=== PATIENT | female | born 1940 | race Caucasian/White ===

== ENCOUNTER → 2018-12-30 16:34 | Outpatient (CLI) | payer OTHER, SELFPAY ==
--- NOTE | 2018-12-30 16:49 | RAD_ITS ---
STUDY: X-RAY - LUMBAR SPINE REASON FOR EXAM: Female, 78 years old. Low back pain. No recent injury. TECHNIQUE: 3 view(s) of the lumbar spine were obtained. COMPARISON: None FINDINGS: Normal lumbar lordosis. There is no substantial scoliosis. There is grade 1 anterolisthesis at the L4-5 and L5-S1 levels, on a degenerative basis. Normal vertebral bodies. There is mild multilevel spondylosis.. There is multi-level degenerative disc disease with multi-level disc space narrowing. There are degenerative changes of the facet joints at the L4-5 and L5-S1 levels. There is atherosclerotic calcification of the abdominal aorta without a demonstrated aneurysm. RAD/Lumbar Spine 2 or 3 Views IMPRESSION: Degenerative changes of the spine, as detailed above. Electronically Signed: Luis Vaughan MD at 7:55 EDT , Service support ,
== END ==
PROVIDERS: Family Provider Internal Medicine; PCP Internal Medicine; Referring Provider Anesthesiology Pain Medicine; Visit Provider Anesthesiology Pain Medicine
DX: M54.9 Dorsalgia, unspecified (principal)
CPT/HCPCS: 72100

== ENCOUNTER → 2019-01-12 15:39 | Outpatient (CLI) | payer MEDICARE, SELFPAY ==
--- NOTE | 2019-01-12 16:00 | MRI_ITS ---
STUDY: MRI LUMBAR SPINE WITHOUT CONTRAST REASON FOR EXAM: Female, 78 years old. Severe back pain and right leg burning TECHNIQUE: Standardized fat and water weighted pulse sequences were obtained in the sagittal and axial planes. COMPARISON: Lumbar spine exam on December 30, 2018 FINDINGS: T12-L1: Normal endplates. Normal disc height, desiccation and normal morphology. Normal bilateral facet joints. Normal central canal and bilateral lateral recesses. Normal bilateral intervertebral neural foramina. Normal lumbar lordosis. There is no substantial scoliosis. Normal conus medullaris that terminates at T12-L1 L1-2: Normal endplates. Normal disc height, desiccation and normal morphology. Normal bilateral facet joints. Normal central canal and bilateral lateral recesses. Normal bilateral intervertebral neural foramina. L2-3: Normal endplates. Normal disc height, desiccation and normal morphology. Normal bilateral facet joints. Normal central canal and bilateral lateral recesses. Normal bilateral intervertebral neural foramina. L3-4: Normal endplates. Normal disc height, desiccation and small bilateral foraminal disc protrusions. Normal bilateral facet joints. Normal central canal and bilateral lateral recesses. Minor bilateral neural foraminal encroachment. L4-5: Grade 1 spondylolisthesis. Normal endplates. Normal disc height, desiccation and minor bulging disc osteophyte complex.. Bilateral facet arthropathy and thickening of ligamenta flava.. Normal central canal. Mild bilateral recess and moderate neural foraminal stenosis exaggerated by shortened pedicles. L5-S1: Grade 1 spondylolisthesis Normal endplates. Normal disc height, desiccation and mild bulging disc osteophyte complex.. Bilateral facet arthropathy and thickening of ligamenta flava greater on the right. Normal central canal and bilateral lateral recesses. Moderate left neuroforaminal stenosis and severe narrowing on the right exaggerated by shortened pedicles Normal visualized sacral ala. Normal visualized paraspinous soft tissue structures. No significant change since recent lumbar spine radiographic study other than accounting for differences in imaging techniques MRI/Spine Lumbar (Routine) IMPRESSION: No evidence for acute fracture or subluxation.. Mild spinal stenosis at L3-4 and more severe at L4-5 and L5-S1 greater on the right due to disc disease and bony hypertrophy exaggerated by shortened pedicles due to spondylolisthesis deformity Electronically Signed: Silvestre Marie MD at 18:51 EDT , Service support ,
== END ==
PROVIDERS: Family Provider Internal Medicine; PCP Internal Medicine; Referring Provider Anesthesiology Pain Medicine; Visit Provider Anesthesiology Pain Medicine
DX: M54.9 Dorsalgia, unspecified (principal); M79.606 Pain in leg, unspecified
CPT/HCPCS: 72148

== ENCOUNTER → 2019-05-19 16:19 | Outpatient (CLI) | payer MEDICARE, SELFPAY | PROVIDERS: Family Provider Internal Medicine; PCP Internal Medicine; Referring Provider Otolaryngology; Visit Provider Otolaryngology | DX: J02.9 Acute pharyngitis, unspecified (principal) | CPT/HCPCS: 87070 ==

== ENCOUNTER → 2021-04-04 14:40 | Outpatient (CLI) | payer MEDICARE, SELFPAY ==
[2021-04-04 16:37] LABS: Amphetamine Urine VISTA NEGATIVE (<1000 ng/mL); Barbiturate Urine VISTA NEGATIVE (< 200 ng/mL); Benzodiazepine Urine VISTA NEGATIVE (< 200 ng/mL); Cocaine Urine VISTA NEGATIVE (< 300 ng/mL); Ecstacy Urine VISTA NEGATIVE (< 500 ng/mL); Methadone Urine VISTA NEGATIVE (< 300 ng/mL); PCP Urine VISTA NEGATIVE (< 25 ng/mL); THC Urine VISTA NEGATIVE (< 50 ng/mL); Vista UDS pH Range 6
== END ==
PROVIDERS: PCP Internal Medicine; Referring Provider Anesthesiology Pain Medicine; Visit Provider Anesthesiology Pain Medicine
DX: F11.20 Opioid dependence, uncomplicated (principal)
CPT/HCPCS: 80307

== ENCOUNTER → 2021-08-09 12:54 | Outpatient (CLI) | payer MEDICARE, SELFPAY ==
--- NOTE | 2021-08-09 13:00 | RAD_ITS ---
STUDY: X-RAY - PELVIS AND RIGHT HIP REASON FOR EXAM: Right hip pain. TECHNIQUE: 2 views of the pelvis and hip. COMPARISON: None. FINDINGS: There is mild vascular calcification. Normal bilateral iliac wings, sacroiliac joints and visualized sacrum. Normal bilateral superior and inferior pubic rami. There is chondrocalcinosis in the pubic symphysis. Normal bilateral ischial tuberosities. Normal visualized femoral head. Normal acetabulum. There are marginal osteophytes and joint space narrowing of the medial right hip joint. RAD/HIP, UNI W/ Pelvis 2-3 Views IMPRESSION: Right hip arthrosis. Electronically Signed: Mukul Arias MD at 14:59 EST Tel , Service support ,
== END ==
PROVIDERS: PCP Internal Medicine; Referring Provider Anesthesiology Pain Medicine; Visit Provider Anesthesiology Pain Medicine
DX: M16.11 Unilateral primary osteoarthritis, right hip (principal)
CPT/HCPCS: 73502

== ENCOUNTER → 2022-06-17 | Outpatient (CLI) | payer MEDICARE, SELFPAY ==
--- NOTE | 2022-06-17 15:28 | MRI_ITS ---
STUDY: MRI CERVICAL SPINE WITHOUT CONTRAST REASON FOR EXAM: Female, 81 years old. Gait disorder; evaluate for myelopathy TECHNIQUE: Standardized fat and water weighted pulse sequences were obtained in the sagittal and axial planes. COMPARISON: X-ray 06/04/2012. FINDINGS: Normal foramen magnum and brainstem-cervical cord junction. Normal craniovertebral junction. Normal anterior atlantoaxial articulation. Normal odontoid process. Normal cervical lordosis. No demonstrated fracture. C2-3: Normal disc height and morphology. Normal central canal. Foramina are patent. C3-4: Normal disc height and morphology. Normal central canal. Foraminal stenosis is severe on the right due to facet hypertrophy. C4-5: Normal disc height and morphology. Normal central canal. Foraminal stenosis is moderate on the left and severe on the right due to facet hypertrophy. C5-6: Prior anterior cervical discectomy and fusion. Fusion is mature. Mild, noncompressive spondylotic bar. No canal stenosis. Mild foraminal encroachment due to facet hypertrophy. C6-7: Prior anterior cervical discectomy and fusion. Fusion is mature. Mild spondylotic bar. No canal stenosis. Mild foraminal encroachment due to facet hypertrophy. C7-T1: Normal disc height and morphology. Normal central canal. Foramina are patent. Normal cervical cord. Normal visualized soft tissue structures. Mucosal thickening in the maxillary sinuses. MRI/Spine Cervical (Routine) IMPRESSION: No disc protrusion or canal stenosis. Multilevel foraminal stenosis, greatest at C3-4 and C4-5. Prior ACDF C5-6 and C6-7. Electronically Signed: Tasha Rebolledo MD at 23:58 EDT Reading Location ID and State: [id number] / Tel , Service support ,
--- NOTE | 2022-06-17 15:28 | MRI_ITS ---
STUDY: MRI BRAIN WITH AND WITHOUT CONTRAST REASON FOR EXAM: Female, 81 years old. Gait disorder TECHNIQUE: Standardized multiplanar fat and water weighted pulse sequences were obtained. 15CC IV CLARISCAN was administered for the contrast portion of the examination. COMPARISON: None. FINDINGS: No intracranial mass, mass effect or midline shift. No enhancing lesion. No hemorrhage, territorial infarct or acute ischemia. There is mild cerebral atrophy with widening of the extra-axial spaces and ventricular dilatation. There are multiple white matter hyperintensities, distributed throughout the deep white matter tracts of the cerebral hemispheres, consistent with moderate chronic white matter ischemic changes. Normal bilateral basal ganglia. Normal thalami. There is no extra-axial fluid accumulation. Normal flow voids within the major intracranial circulation suggesting patency by spin echo criteria. There is no enhancing intra-axial or extra-axial abnormality. Pituitary gland is normal in height. Normal midbrain, jaswinder and medulla. Normal cerebellum. Normal basal cisterns. Normal bilateral temporal bones. Normal bilateral internal auditory canals. Fluid levels in the maxillary sinuses bilaterally consistent with acute sinusitis. Normal calvarium and skull base. Normal visualized soft tissue structures. MRI/Brain W/WO Contrast IMPRESSION: Acute maxillary sinusitis. Moderate chronic microvascular ischemic changes. Mild atrophy. Electronically Signed: Tasha Rebolledo MD at 23:31 EDT Reading Location ID and State: [id number] / Tel , Service support ,
[2022-06-17 16:15] LABS: CREATININE FINGERSTICK < 0.9 mg/dL (0.55-1.02); EGFR FINGERSTICK > 60.0000 mL/min (>60)
== END | disposition home or self-care (01) ==
PROVIDERS: PCP Internal Medicine; Referring Provider Psychiatry & Neurology Neurology; Visit Provider Psychiatry & Neurology Neurology
DX: R26.9 Unspecified abnormalities of gait and mobility (principal); M48.02 Spinal stenosis, cervical region; J01.00 Acute maxillary sinusitis, unspecified
CPT/HCPCS: 70553; 72141; A9575

== ENCOUNTER → 2022-07-31 | Outpatient (CLI) | payer MEDICARE, SELFPAY ==
[2022-07-31 15:20] LABS: Hematocrit 41.8 % (37-47); Hemoglobin 13.4 g/dL (12.0-15.0); Mean Corp Hgb Conc 32.1 g/dL (32-36); Mean Corpuscular Hgb 31.2 pg (27.0-32.0); Mean Corpuscular Volume 97.4 fL (81-99); Mean Platelet Vol. 9.4 fl (6.2-12.0); Platelet Count 289 K/mm3 (150-450); RBC Distribution Width CV 13.8 % (11.6-14.6); RBC Distribution Width SD 49.8 fl (35.1-43.9); Red Blood Count 4.29 M/mm3 (4.2-5.4); White Blood Count 8.1 K/mm3 (4.4-11.0)
[2022-07-31 15:52] LABS: ALB/GLOB Ratio 0.8 RATIO (0.9-2.4); AST(SGOT) 12 U/L (15-37); Alanine Aminotransfer ALT/SGPT 28 U/L (13-56); Albumin, Serum 3.4 g/dL (3.2-5.0); Alkaline Phosphatase 112 U/L (45-117); Anion Gap 4 (5-15); BUN 22 mg/dL (7-18); BUN/Creat Ratio 21.8 RATIO (10-20); Calcium,Total 8.7 mg/dL (8.5-10.1); Chloride 104 mmol/L (98-107); Creatinine, Serum 1.01 mg/dL (0.55-1.02); EST Glomerular Filtration Rate 56 mL/min (>60); Est Glom Filt Rate - Afr Amer 68 mL/min (>60); Glucose 222 mg/dL (74-106); Potassium 4.4 mmol/L (3.5-5.1); Protein, Total 7.4 g/dL (6.4-8.2); Sodium Level 137 mmol/L (136-145); T4 Free Direct 0.67 ng/dL (0.76-1.46); Thyroid Stim Hormone (TSH) 5.32 uIU/mL (0.358-3.74)
[2022-08-06 12:08] LABS: Albumin 3.7 g/dL (2.9-4.4); Alpha-1-Globulins 0.3 g/dL (0.0-0.4); Alpha-2-Globulins 0.9 g/dL (0.4-1.0); Free Lambda Light Chains 17.8 mg/L (5.7-26.3); Gamma Globulin 1.3 g/dL (0.4-1.8); Immunoglobulin A 545 mg/dL (64-422); Immunoglobulin G 1296 mg/dL (586-1602); Immunoglobulin M 135 mg/dL (26-217); PROEL- TOTAL PROTEIN 7.5 g/dL (6.0-8.5); Vitamin B1, Thiamine 184.5 nmol/L (66.5-200.0)
== END | disposition home or self-care (01) ==
LOC: MTLAB 11:58
PROVIDERS: PCP Internal Medicine; Referring Provider Psychiatry & Neurology Neurology; Visit Provider Psychiatry & Neurology Neurology
DX: I10 Essential (primary) hypertension (principal); G62.9 Polyneuropathy, unspecified
CPT/HCPCS: 36415; 80053; 82784; 83883; 84165; 84425; 84439; 84443; 85027; 86334; 86335

== ENCOUNTER → 2022-08-28 | Outpatient (CLI) | payer MEDICARE, SELFPAY ==
--- NOTE | 2022-08-28 15:21 | NEURO ---
NCS and/or EMG Patient Report Ordering Doctor: Jaiden Gill DATE OF SERVICE: 08/28/22 Yusra presents for electrodiagnostic testing of the lower limbs. She reports frequent falls over the past few months. Electrodiagnostic findings: Right peroneal motor nerve demonstrates normal distal latency, amplitude and conduction velocity. Normal left peroneal motor response. Normal tibial motor response bilaterally. Normal tibial and peroneal F waves. Normal superficial peroneal response bilaterally. Needle EMG, all muscles tested in the lower limbs showed no evidence of denervation with normal motor unit action potentials. No denervation noted in the lumbar paraspinals. Electrodiagnostic impression: There is a normal electrodiagnostic study of the lower extremities. There is no electrodiagnostic evidence for peripheral polyneuropathy or lumbosacral radiculopathy.
== END | disposition home or self-care (01) ==
LOC: PSN 11:46
PROVIDERS: PCP Internal Medicine; Referring Provider Psychiatry & Neurology Neurology; Visit Provider Psychiatry & Neurology Neurology
DX: M54.16 Radiculopathy, lumbar region (principal); G62.9 Polyneuropathy, unspecified; R26.89 Other abnormalities of gait and mobility
CPT/HCPCS: 95886; 95911

== ENCOUNTER → 2023-05-08 | Outpatient (CLI) | payer MEDICARE, SELFPAY ==
--- NOTE | 2023-05-08 13:20 | RAD_ITS ---
STUDY: X-RAY - LEFT KNEE REASON FOR EXAM: Female, 82 years old. Left knee pain. TECHNIQUE: 4 view(s) of the knee. COMPARISON: None. FINDINGS: Osteopenia. Moderate medial compartmental arthrosis. Mild lateral compartmental arthrosis. Lateral tilt and subluxation of the patella with moderate arthrosis of the patellofemoral compartment with osteophyte formation. Chondrocalcinosis with joint effusion. RAD/Knee 4 or More Views IMPRESSION: Osteopenia with tricompartmental arthrosis as described. Joint effusion with chondrocalcinosis. Electronically Signed: Daquan Caraballo MD at 14:41 EDT ,
== END | disposition home or self-care (01) ==
PROVIDERS: PCP Internal Medicine; Referring Provider Anesthesiology Pain Medicine; Visit Provider Anesthesiology Pain Medicine
DX: M25.562 Pain in left knee (principal)
CPT/HCPCS: 73564

== ENCOUNTER → 2023-09-08 | Outpatient (CLI) | payer MEDICARE, SELFPAY ==
--- NOTE | 2023-09-08 12:54 | RAD_ITS ---
INDICATION: PAIN EXAMINATION/TECHNIQUE: X-RAY - XR Spine Cervical 4 or 5 Views COMPARISON: No similar studies available for comparison. FINDINGS: VERTEBRAE: Preserved vertebral body height. No fracture. No spondylolisthesis. Straightening of the cervical spine. Degenerative changes of the apophyseal joints particularly at the levels of C2-C3, C3-C4 and C4-C5. Difficult to accurately evaluate the neural foramina. DISCS: Anterior fusion of C5-C7 with anterior plate and screws. NECK SOFT TISSUES: No prevertebral soft tissue widening. LUNG APICES: Clear. RAD/Cerv Spine 4 or 5 Views IMPRESSION: Fusion of the lower cervical spine. Degenerative changes . Electronically Signed: Christopher Quevedo MD at 13:49 EST ,
--- NOTE | 2023-09-08 12:54 | RAD_ITS ---
INDICATION: PAIN EXAMINATION/TECHNIQUE: X-RAY - XR Spine Lumbar Min 4 Views COMPARISON: Prior study dated: 12/30/2018. FINDINGS: VERTEBRAE: Preserved vertebral body height. No fracture. [Anterolisthesis of L4 over L5 and L5 over S1 essentially unchanged. Preservation of the normal lumbar lordosis. Degenerative changes of the facet joints of the lower lumbar spine. DISCS: Narrowing of L3-4 and L4-L5 disc spaces. INCLUDED ABDOMEN: Included bowel gas pattern is non-obstructive atherosclerotic calcifications of the abdominal aorta.. RAD/L/S Spine Min 4 Views IMPRESSION: Degenerative changes of the lumbar spine as described above. Electronically Signed: Christopher Quevedo MD at 14:03 EST ,
--- OUTSIDE RECORDS SUMMARY | 2023-09-08 13:18 | XMS RPT_ITS | CCD ---
Author Name Unknown Address [address] [place] [address] Organization [facility] Care Team Providers Care Seismograph Operator Helper Name Role Phone Mignon MATTHEW, Yaquelin Ramon Unavailable Cristina Osuna LPN Unavailable Unavailabl e FREYVOGEL, JEWEL Unavailable Unavailable FREYVOGEL, JEWEL Unavailable Unavailable FREYVOGEL, JEWEL Unavailable Unavailable ALEXANDRA BOYD, DR BUTLER Primary Care Physician FANTA BURNS Consulting Unavailable DR LUKE REEDER MD Primary Care Unavailable ALICIA SAWYER MD Attending Unavailable Luke Reeder MD Primary Care Provider Carol BOYD, Larry Unavailable [phone] VENKAT TRACEY MD Attending Unavailable VENKAT TRACEY MD Admitting Unavailable LUKE REEDER MD Consulting Unavailable VENKAT TRACEY MD Primary Care Unavailable PROVIDER, UNKNOWN Consulting Unavailable PROVIDER, UNKNOWN Consulting Unavailable PROVIDER, UNKNOWN Consulting Unavailable LUKE REEDER MD Admitting Unavailable LUKE REEDER MD Consulting Unavailable LUKE REEDER MD Attending Unavailable LUKE REEDER MD Primary Care Unavailable PROVIDER, UNKNOWN Consulting Unavailable PROVIDER, UNKNOWN Consulting Unavailable PROVIDER, UNKNOWN Consulting Unavailable LUKE REEDER MD Admitting Unavailable LUKE REEDER MD Consulting Unavailable LUKE REEDER MD Attending Unavailable LUKE REEDER MD Primary Care Unavailable PROVIDER, UNKNOWN Consulting Unavailable PROVIDER, UNKNOWN Consulting Unavailable PROVIDER, UNKNOWN Consulting Unavailable REHAN, DEMETRIA PAC Attending Unavailable REHAN, DEMETRIA PAC Admitting Unavailable REHAN, DEMETRIA PAC Primary Care Unavailable LUKE REEDER MD Consulting Unavailable PROVIDER, UNKNOWN Consulting Unavailable PROVIDER, UNKNOWN Consulting Unavailable PROVIDER, UNKNOWN Consulting Unavailable ALICIA SAWYER MD Attending Unavailable ALICIA SAWYER MD Admitting Unavailable LATLUKE ARAGON MD Consulting Unavailable ALICIA SAWYER MD Primary Care Unavailable PROVIDER, UNKNOWN Consulting Unavailable PROVIDER, UNKNOWN Consulting Unavailable PROVIDER, UNKNOWN Consulting Unavailable LUKE REEDER MD Admitting Unavailable LUKE REEDER MD Consulting Unavailable LUKE REEDER MD Attending Unavailable LUKE REEDER MD Primary Care Unavailable PROVIDER, UNKNOWN Consulting Unavailable PROVIDER, UNKNOWN Consulting Unavailable PROVIDER, UNKNOWN Consulting Unavailable LUKE REEDER MD Attending Unavailable LUKE REEDER MD Primary Care Unavailable LATLUKE ARAGON MD Consulting Unavailable LUKE REEDER MD Admitting Unavailable PROVIDER, UNKNOWN Consulting Unavailable PROVIDER, UNKNOWN Consulting Unavailable PROVIDER, UNKNOWN Consulting Unavailable LARRY CORRIGAN Attending Unavailable LARRY CORRIGAN Admitting Unavailable LUKE REEDER MD Consulting Unavailable LARRY CORRIGAN Primary Care Unavailable PROVIDER, UNKNOWN Consulting Unavailable PROVIDER, UNKNOWN Consulting Unavailable PROVIDER, UNKNOWN Consulting Unavailable LUKE REEDER MD Consulting Unavailable LUKE REEDER MD Attending Unavailable LUKE REEDER MD Admitting Unavailable LUKE REEDER MD Primary Care Unavailable PROVIDER, UNKNOWN Consulting Unavailable PROVIDER, UNKNOWN Consulting Unavailable PROVIDER, UNKNOWN Consulting Unavailable LUKE REEDER MD Attending Unavailable LUKE REEDER MD Primary Care Unavailable LATOULUKE Perry MD Consulting Unavailable LUKE REEDER MD Admitting Unavailable PROVIDER, UNKNOWN Consulting Unavailable PROVIDER, UNKNOWN Consulting Unavailable PROVIDER, UNKNOWN Consulting Unavailable LUKE REEDER MD Consulting Unavailable LUKE REEDER MD Attending Unavailable LUKE REEDER MD Primary Care Unavailable LUKE REEDER MD Admitting Unavailable PROVIDER, UNKNOWN Consulting Unavailable PROVIDER, UNKNOWN Consulting Unavailable PROVIDER, UNKNOWN Consulting Unavailable REHAN, DEMETRIA PAC Attending Unavailable REHAN, DEMETRIA PAC Admitting Unavailable LATLUKE ARAGON MD Consulting Unavailable REHAN, DEMETRIA PAC Primary Care Unavailable PROVIDER, UNKNOWN Consulting Unavailable PROVIDER, UNKNOWN Consulting Unavailable PROVIDER, UNKNOWN Consulting Unavailable LUKE REEDER MD Referring Unavailable NEETUOLIVIER HERRERA Attending Unavailable NEETUOLIVIER E Admitting Unavailable LATOULUKE Perry MD Consulting Unavailable NEETU OLIVIER E Primary Care Unavailable PROVIDER, UNKNOWN Consulting Unavailable PROVIDER, UNKNOWN Consulting Unavailable PROVIDER, UNKNOWN Consulting Unavailable LUKE REEDER MD Referring Unavailable OLIVIER DE ANDA Attending Unavailable NEETU, OLIVIER E Admitting Unavailable OLIVIER DE ANDA Primary Care Unavailable LATOUF, BUTROS Consulting Unavailable PROVIDER, UNKNOWN Consulting Unavailable PROVIDER, UNKNOWN Consulting Unavailable PROVIDER, UNKNOWN Consulting Unavailable LATOUF, BUTROS Primary Care Unavailable LATOUF, BUTROS Referring Unavailable LARRY CORRIGAN Attending Unavailable CAROL, LARRY Attending Unavailable CAROL, LARRY Referring Unavailable LATOUF, BUTROS Primary Care Unavailable CAROL, LARRY Referring Unavailable SHARON TSAI Attending Unavailable LATOUF, BUTROS Primary Care Unavailable LATOUF, BUTROS Primary Care Unavailable LATOUF, BUTROS Primary Care Unavailable CAROL, LARRY Referring Unavailable Allergies Allergy Classification Reported Allergen(s) Allergy Type Date of Onset Reaction(s) Facility (16 sources) aspirin; Translations: [aspirin] drug allergy 7 GI Upset [facility] Work Phone: (2 sources) Latex rubber gloves drug allergy 7 [facility] Work Phone: (2 sources) meperidine drug allergy 7 [facility] Work Phone: (2 sources) metFORMIN drug allergy 7 [facility] Work Phone: (14 sources) Codeine; Translations: [codeine] Drug Allergy 3 Other: See Comments [facility] [place] (15 sources) Latex; Translations: [LATEX] Allergy to substance 3 Rash [facility] [place] (14 sources) Meperidine; Translations: [meperidine] Drug Allergy 3 Vomiting [facility] [place] (14 sources) metFORMIN; Translations: [metformin] Drug Allergy 3 Diarrhea [facility] metroNIDAZOLE; Translations: [metronidazole] Drug Allergy unspecified [facility] [place] (1 source) Aspirin Drug Allergy [facility] (1 source) Codeine Drug Allergy [facility] (1 source) Meperidine Drug Allergy [facility] (1 source) Meperidine Drug Allergy [facility] (1 source) metFORMIN Drug Allergy [facility] Medications Current Medications Medication Drug Class(es) Dates Sig (Normalized) Sig (Original) amLODIPine 5 mg oral tablet (15 sources) Dihydropyridine Calcium Channel Obdulio Start: 04-12-2022 amLODIPine 5 mg oral tablet Dose : 5 mg = 1 tab(s), Oral, qDay, # 30 tab(s), 0 Refill(s) Start Date: 04/12/22 Status: Ordered Completed/Discontinued Medications Medication Drug Class(es) Dates Sig (Normalized) Sig (Original) acetaminophen 500 mg oral tablet (2 sources) ACETAMINOPHEN 50 0 MG TABS PO PRN ACETAMINOPHEN [id number] Yaquelin Crow NP MULTIPLE VITAMINS-MINERALS (2 sources) take 1 capsule by mouth once daily OCUVITE-LUTEIN CAPS 1 PO daily MULTIPLE VITAMINS-MINERALS [id number] Yaquelin Crow NP biotin 5 mg sublingual tablet (10 sources) biotin 5,000 mcg subl Dissolve under the tongue two times a day. 0 Active Problems Active Problems Problem Classification Problem Date Documented Date Episodic/Chronic Acute and unspecified renal failure (1 source) Unspecified kidney failure; Translations: [Unspecified kidney failure] Onset: 05-11-2023 Chronic Allergic reactions (3 sources) Allergy status to analgesic agent status; Translations: [Latex allergy status] Onset: 05-11-2023 Episodic Anxiety disorders (2 sources) Generalized anxiety disorder; Translations: [Anxiety disorder, unspecified] Onset: 05-16-2023 12-22-2020 Chronic Cancer of thyroid (1 source) Personal history of malignant neoplasm of thyroid; Translations: [Personal history of malignant neoplasm of thyroid] Onset: 05-16-2023 Episodic Cardiac dysrhythmias (1 source) Palpitations; Translations: [Palpitations] Onset: 05-16-2023 Episodic Chronic kidney disease (2 sources) Chronic kidney disease; Translations: [Chronic kidney disease, stage 3a] Onset: 08-05-2023 Congestive heart failure; nonhypertensive (4 sources) Diastolic heart failure; Translations: [Unspecified diastolic (congestive) heart failure] Onset: 10-02-2022 09-17-2022 Chronic Coronary atherosclerosis and other heart disease (1 source) Atherosclerotic heart disease of [place] coronary artery without angina pectoris; Translations: [Atherosclerotic heart disease of [place] coronary artery without angina pectoris] Onset: 05-11-2023 Chronic Diabetes mellitus with complications (4 sources) Type II diabetes mellitus uncontrolled; Translations: [Type 2 diabetes mellitus with other specified complication] Onset: 01-07-2017 01-07-2017 Chronic Diabetes mellitus without complication (1 source) Type 2 diabetes mellitus without complications; Translations: [Type 2 diabetes mellitus without complications] Onset: 05-11-2023 Chronic Diseases of white blood cells (6 sources) Leukemoid reaction; 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] Onset: 05-26-2023 06-30-2023 Chronic Disorders of lipid metabolism (3 sources) Hyperlipidemia; Translations: [Hyperlipidemia, unspecified] Onset: 08-05-2023 01-07-2017 Chronic Esophageal disorders (2 sources) Gastroesophageal reflux disease; Translations: [Gastro-esophageal reflux disease with esophagitis] 01-07-2017 Chronic Essential hypertension (7 sources) Hypertensive disorder; Translations: [Essential (primary) hypertension] Onset: 02-05-2023 01-07-2017 Chronic Genitourinary symptoms and ill-defined conditions (1 source) Proteinuria, unspecified; Translations: [Proteinuria, unspecified] Onset: 08-05-2023 Episodic Hypertension with complications and secondary hypertension (4 sources) Hypertensive chronic kidney disease with stage 1 through stage 4 chronic kidney disease, or unspecified chronic kidney disease; Translations: [Hypertensive heart disease with heart failure] Onset: 10-02-2022 Chronic Leukemias (1 source) Chronic myeloid leukemia; Translations: [Chronic myeloid leukemia, BCR/ABL-positive, not having achieved remission] 07-23-2023 Chronic Mood disorders (2 sources) Recurrent major depressive episodes, moderate ; Translations: [Major depressive disorder, recurrent, moderate] Onset: 05-16-2023 12-22-2020 Chronic Osteoarthritis (1 source) Unspecified osteoarthritis, unspecified site; Translations: [Unspecified osteoarthritis, unspecified site] Onset: 05-16-2023 Chronic Other circulatory disease (1 source) Personal history of transient ischemic attack (TIA), and cerebral infarction without residual deficits; Translations: [Personal history of transient ischemic attack (TIA), and cerebral infarction without residual deficits] Onset: 05-11-2023 Episodic Other diseases of kidney and ureters (1 source) Disorder of kidney and ureter, unspecified; Translations: [Disorder of kidney and ureter, unspecified] Onset: 05-26-2023 Episodic Other nutritional; endocrine; and metabolic disorders (2 sources) Overweight; Translations: [Overweight] Onset: 01-07-2017 01-07-2017 Chronic Other screening for suspected conditions (not mental disorders or infectious disease) (2 sources) Abnormal result of other cardiovascular function study; Translations: [Abnormal result of other cardiovascular function study] Onset: 02-25-2023 Episodic Personality disorders (1 source) Personality disorder 12-22-2020 Chronic Pneumonia (except that caused by tuberculosis or sexually transmitted disease) (1 source) Other pneumonia, unspecified organism; Translations: [Other pneumonia, unspecified organism] Onset: 05-11-2023 Episodic Residual codes; unclassified (1 source) Asymptomatic menopausal state; Translations: [Asymptomatic menopausal state] Onset: 05-16-2023 Episodic Residual codes; unclassified (1 source) Acquired absence of other specified parts of digestive tract; Translations: [Acquired absence of other specified parts of digestive tract] Onset: 05-11-2023 Episodic Residual codes; unclassified (1 source) Acquired absence of other genital organ(s); Translations: [Acquired absence of other genital organ(s)] Onset: 05-11-2023 Episodic Thyroid disorders (1 source) Nontoxic single thyroid nodule; Translations: [Nontoxic single thyroid nodule] Onset: 05-16-2023 Chronic Transient cerebral ischemia (2 sources) Transient cerebral ischemia; Translations: [Transient cerebral ischemic attack, unspecified] Onset: 10-02-2022 09-17-2022 Chronic Unclassified (1 source) No current problems or disability 01-07-2017 Unclassified (2 sources) Cough, unspecified; Translations: [Cough, unspecified] Onset: 05-11-2023 Unclassified (2 sources) Low back pain, unspecified; Translations: [Low back pain, unspecified] Onset: 04-13-2023 Past or Other Problems Problem Classification Problem Date Documented Da te Episodic/Chronic Fracture of upper limb (3 sources) Nondisplaced fracture of left radial styloid process, subsequent encounter for closed fracture with routine healing; Translations: [Nondisplaced fracture of left radial styloid process, subsequent encounter for closed fracture with routine healing] Onset: 10-01-2022 Episodic Hepatitis (2 sources) Type B viral hepatitis; Translations: [Hepatitis A without hepatic coma] 01-07-2017 Episodic Nonspecific chest pain (1 source) Chest pain, unspecified; Translations: [Chest pain, unspecified] Onset: 10-02-2022 Episodic Superficial injury; contusion (1 source) Contusion of left wrist, subsequent encounter; Translations: [Contusion of left wrist, subsequent encounter] Onset: 10-01-2022 Episodic Unclassified (1 source) Cough, unspecified; Translations: [Cough, unspecified] Onset: 05-11-2023 Unclassified (1 source) Low back pain, unspecified; Translations: [Low back pain, unspecified] Onset: 04-13-2023 Results Test Name Value Interpretation Reference Range Facil it Vital Signs Date Time Vital Sign Value Performing Clinician Facility 06-30-2023 16:52-0400 Body temperature 97.81 [degF] Milton Tsai INVERTEBRATE PALEONTOLOGIST.CAR SPOTTER Work Phone: [facility] 06-30-2023 16:52-0400 Diastolic blood pressure 78 mm[Hg] Milton Tsai INVERTEBRATE PALEONTOLOGIST.CAR SPOTTER Work Phone: [facility] 06-30-2023 16:52-0400 Heart rate 70 /min Milton Tsai INVERTEBRATE PALEONTOLOGIST.CAR SPOTTER Work Phone: [facility] 06-30-2023 16:52-0400 Systolic blood pressure 173 mm[Hg] Milton Tsai INVERTEBRATE PALEONTOLOGIST.CAR SPOTTER Work Phone: [facility] 02-25-2023 10:20-0400 Diastolic Blood Pressure Non-Invasive 78 1 ALICIA SAWYER MD [facility] 02-25-2023 10:20-0400 Heart rate 60 /min ALICIA SAWYER MD [facility] 02-25-2023 10:20-0400 Systolic Blood Pressure Non-Invasive 144 1 ALICIA SAWYER MD [facility] 02-25-2023 10:02-0400 Diastolic Blood Pressure Non-Invasive 56 1 ALICIA SAWYER MD [address] [place] [address] 02-25-2023 10:02-0400 Heart rate 62 /min ALICIA SAWYER MD [address] [place] [address] 02-25-2023 10:02-0400 Systolic Blood Pressure Non-Invasive 124 1 ALICIA SAWYER MD [address] [place] [address] 02-25-2023 09:56-0400 Diastolic Blood Pressure Non-Invasive 71 1 ALICIA SAWYER MD [address] [place] [address] 02-25-2023 09:56-0400 Heart rate 58 /min ALICIA SAWYER MD [address] [place] [address] 02-25-2023 09:56-0400 Systolic Blood Pressure Non-Invasive 165 1 ALICIA SAWYER MD [address] [place] [address] 02-25-2023 07:33-0400 Blood Pressure Location ALICIA SAWYER MD [address] [place] [address] 02-25-2023 07:33-0400 Blood Pressure Method ALICIA SAWYER MD [address] [place] [address] 02-25-2023 07:33-0400 Body height 156.2 cm ALICIA SAWYER MD [address] [place] [address] 02-25-2023 07:33-0400 Body temperature 97.7 [degF] ALICIA SAWYER MD [address] [place] [address] 02-25-2023 07:33-0400 Body weight 77.3 kg ALICIA SAWYER MD [address] [place] [address] 02-25-2023 07:33-0400 Body weight 31.68 kg/m2 ALICIA SAWYER MD [address] [place] [address] 02-25-2023 07:33-0400 Heart rate 72 /min ALICIA SAWYER MD [address] [place] [address] 02-25-2023 07:33-0400 Respiratory rate 18 /min ALICIA SAWYER MD [address] [place] [address] 01-07-2017 08:29-0400 BMI (Body Mass Index) 32.11 kg/m2 Yaquelin Crow NP [facility] Work Phone: 01-07-2017 08:29-0400 BP Diastolic 74 mm[Hg] Yaquelin Crow NP [facility] Work Phone: 01-07-2017 08:29-0400 BP Systolic 120 mm[Hg] Yaquelin Crow NP [facility] Work Phone: 01-07-2017 08:29-0400 Height 157.48 cm Yaquelin Crow NP [facility] Work Phone: 01-07-2017 08:29-0400 Pulse (Heart Rate) 75 /min Yaquelin Crow NP [facility] Work Phone: 01-07-2017 08:29-0400 Pulse Oximetry 95 % Yaquelin Crow NP [facility] Work Phone: 01-07-2017 08:29-0400 Weight 79.65 kg Yaquelin Crow NP [facility] Work Phone: Encounters Encounter Date Encounter Type Care Provider Facility Start: 08-19-2023 Telephone encounter Larry irizarry MD Work Phone: Hematology/Oncology Procedures Date Procedure Procedure Detail Performing Clinician Start: 06-30-2023 Diagnostic bone asiya ow biopsies & aspirations Sharon Tsai INVERTEBRATE PALEONTOLOGIST.CAR SPOTTER Work Phone: Start: 04-13-2023 Urinalysis VENKAT PIMENTEL Plan of Treatment Date Care Activity Detail Author Start: 05-16-2026 Diabetes Screening Diabetes Screening [facility] Start: 10-23-2023 End: 01-22-2024 BCR/ABL1 P190 QUANTITATIVE PCR BLOOD BCR/ABL1 P190 QUANTITATIVE PCR BLOOD Lab Routine CML (chronic myelocytic leukemia) (HCC) Expected: 10/23/2023 (Approximate), Expires: 01/22/2024 [facility] Work Phone: Payers Date Payer Category Payer Unknown [id number] 2021 Unknown ANTHEM BLUE [employer] S AND BLUE SHIELD [employer] HMO [id number] 2021-Present [phone] [address] [place] [address] HMO [id number] 1941 Unknown [id number] 1941 Unknown [id number] [id number] 1941 Unknown [id number] [id number] 1941 Unknown [id number] [id number] 1941 Unknown [id number] [id number] 1941 Unknown [id number] [id number] 1941 Unknown [id number] [id number] 1941 Unknown [id number] [id number] 1941 Unknown [id number] [id number] 1941 Unknown [id number] [id number] 1941 Unknown [id number] [id number] 1941 Unknown [id number] [id number] 1941 Unknown [id number] [id number] 1941 Unknown [id number] [id number] 1941 Unknown [id number] Social History Date Type Detail Facility Start: 04-12-2022 End: 06-18-2023 Tobacco smoking status Never smoked tobacco (finding) [facility] Sex [facility] At Female [facility] Start: 06-18-2023 Tobacco use and exposure Smokeless tobacco non-user [facility] Start: 06-18-2023 Alcohol intake Ex-drinker (finding) [facility] Start: 06-18-2023 History of Social function [facility] Start: 06-18-2023 Tobacco use panel [facility] Start: 06-18-2023 Education 12 [facility] Start: 06-18-2023 Alcohol Comment Only when morales g not now [facility] Start: 1940 Sex Assigned At Not on file [facility] Functional Status Date Assessment Result Facility 02-25-2023 Functional Status Safety level maintained [facility] 02-25-2023 Functional Status [facility] Mental Status Date Assessment Result Facility 02-25-2023 Mental Status Orientation Oriented x 4 [facility] Clinical Notes 09-17-2022 to 08-19-2023 Telephone Encounter - Berkley Maharaj RN - 08/19/2023 11:59 AM ESTTelephone Encounter - Genny Nguyen - 08/19/2023 10:03 AM ESTTelephone Encounter - Kayleen Antonio RN - 08/11/2023 1:04 PM EST Note Date & Type Note Facility 08-19-2023 Miscellaneous Notes Call to patient, reviewed labs. Questions answered. She is also aware she needs to reach out to [facility] and ask about delivery date. She states she will reach out to her son who assisted with signing up for program and ask him if any updates. She is aware to call us once it is delivered so we can set up follow up labs/OV. She agrees. Patient denies further needs or questions at this time. Guerline Maharaj, RN Patient called requesting platelet count from last lab. She also states she has not received her oral chemo yet. documented in this encounter [facility] 08-11-2023 Miscellaneous Notes ORAL ANTI-CANCER AGENTS EDUCATION patient called today for oral medication education of gleevec for Chronic Myelogenous Leukemia (CML) READINESS TO LEARN Cognitive Ability: Alert and oriented Motivation to Learn: Interested Family Support: is in the correction and not doing well. Patient is the only person in her home. Instruction Provided to: Patient Patient learns best by: Multiple Methods Factors affecting learning: None Physical limitation affecting learning: None PONCE ASSESSMENT: 1.) Verified that patient knows that the oral agents are for cancer and are taken by mouth. Yes 2.) Medication review completed during visit. Yes 3.) Patient is able to swallow pills. Yes 4.) Patient is able to read the drug label/information. Yes 5.) Patient is able to open the medication bottles and packages. Yes 6.) Has patient taken other pills for cancer? No 7.) Is patient experiencing any symptoms that would affect their ability to keep down pills, for example nausea or vomiting? No 8.) Verified that patient understands prescription delivery, benefit investigation and refill process. Yes DRUG-SPECIFIC EDUCATION: 1.) Verified patient knows the drug name. Yes reviewed with patient. 2.) Verified patient understands the dose and schedule of oral anti cancer agent. Yes 3.) Verified patient knows what to do if a medication dose is missed. Yes 4.) Verified patient understands where to store the drug. Yes 5.) Verified patient understands potential side effects and how to manage them. Yes 6.)Verified patient understands handling precautions of oral anti cancer agent. Yes 7.) Verified patient was given written instructions and understands when and whom to call with questions. Yes 8.) Verified patient understands where and how to return drug. Yes 9.) Verified patient received drug specific adult education handout and neutropenic wallet card, yes received handout/packet in the mail. EVALUATE: The patient demonstrated an understanding of all the above education using the teach-back method. Yes Instructed to call us with any questions, concerns, and/or unresolved symptoms. Will continue to follow up and provide reinforcement of teaching topics as needed. Kayleen Antonio RN Dr. Corrigan was given lab results to review. Patient can start once she receives. Reviewed Gleevec information with patient. Kayleen Antonio RN Patient requesting lab results from last week from [facility] documented in this encounter [facility] 08-07-2023 Miscellaneous Notes John Banks's Imatinib has been approved through her insurance, however it would be more financially affordable to be filled at [facility]. Will you please sign this order to have the medication sent there Thank you Jose Bishop, PharmD Clinical Pharmacist, Oncology [facility] P: ; F: Pool: P [facility] Pool #: [id number] documented in this encounter [facility] 08-05-2023 Miscellaneous Notes Orders faxed to [facility] . Pt. Notified CBC order only was faxed. Daisy Pradhan LPN yes, ok to fax to [facility] Guerline Maharaj RN Patient has standing order for CBC. Okay to fax to [facility] per patient request? Kelsea Travis LPN John called in asking if would order another CBC lab work for her to have done again before starting the Gleevec? She stated she has not received the medication but wants to have especially her platelet count checked again prior to starting. She is requesting that if you would order this, can you order it so she can have it done at [facility] in [place] because it is close to her home. Please advise and we can let John know Malika Hester documented in this encounter [facility] 07-23-2023 Note HNO ID: [id number] Author: Olga Montague RN Service: ? Author Type: Registered Nurse Type: Progress Notes Filed: 08/07/2023 4:08 PM Note Text: [facility] received prescription(s) for Imatinib from Dr. Corrigan's office. PA was approved with details listed below. Plan Name: An[employer] Medicare / [employer] PA ref number: [id number] Approval Dates: 04/25/2023 - 07/24/2024 Prescriptions will now be processed through [facility] for determination of next steps. MALKA Dave, RN July 25, 2023 8:22 AM Addendum July 25, 2023 10:36 AM : First copay is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 Administered by No Administered by: Linette Segura RN Physician? Last Modified By: Linette Segura RN 02/25/23 10:01:37 Procedure Case Times- CT Entry 1 Patient In Procedure Patient In OR 02/25/23 09:38:00 Patient Out of OR 02/25/23 10:04:00 Procedure Start/Stop Procedure Start Time 02/25/23 09:49:00 Procedure Stop Time 02/25/23 10:00:00 Last Modified By: Linette Segura RN 02/25/23 10:01:48 Allergy Information- CT Entry 1 Allergies Reviewed? Yes Allergies Reviewed Patient With Last Modified By: Linette Segura RN 02/25/23 09:38:21 Radiology Protocols/Time Out- CT Entry 1 Preprocedure Clinician Verifies Correct patient ID When Clinically Confirmation of correct using name & date Indicated side(s) and site(s), or MRN, Accurate Correct diagnostic and procedure, complete radiology tests Informed Consent available OR/Procedure Room/Bedside Time 02/25/23 09:39:00 Clinician Verifies Correct patient identity including EMR & records using name and date or medical record number, Accurate procedure consent form, Correct patient position, Necessary equipment is available When Applicable Confirmation correct side and site marked, Relevant images and results are properly labeled and appropriately displayed Instrument Sterility Procedure CT Coronary Angiography W+W/O Contrast ( Last Modified By: Linette Segura RN 02/25/23 09:40:02 Patient Positioning - CT Entry [address] Coronary Angiography Body Position OP Supine W+W/O Contrast ( Feet Uncrossed? Yes Pressure Points Yes Checked Last Modified By: Linette Segura RN 02/25/23 09:40:08 Radiology Procedure Plan - CT Entry 1 Radiology - Nursing Care Plan Outcome Statement The patient Outcome Statement The patient receives demonstrates knowledge Cont. appropriate of the expected medication(s), safely responses to the administered during the operative/invasive perioperative/invasive procedure., The period., The patient is patient's value system, free from signs and lifestyle, ethnicity, symptoms of injury and culture are caused by extraneous considered, respected, objects (equipment, and incorporated in the instrumentation, perioperative plan of sponges, or sharps)., care., The patient is The patient is free free from signs and from signs and symptoms symptoms of infection. of electrical injury. Radiology - Action Plan Action Plan - Patient's value system, Outcome Statement lifestyle, ethnicity, and culture are considered, respected, and incorporated in the perioperative plan of care., Patient is free from signs and symptoms of infection., Patient is free from signs and symptoms of injury related to positioning., Patient is free from signs and symptoms of chemical injury., Patient receives appropriate medication(s), safely administered during the perioperative period., Patient is free from signs and symptoms of injury caused by extraneous objects (equipment, instrumentation, sponges, or sharps). Seismograph Operator Helper Linette Segura RN Completing Procedure Plan Last Modified By: Linette Segura RN 02/25/23 09:40:41 Radiology Lines and Procedures- CT Entry 1 Radiology Sedation Case Times Sedation Total Time 0 Radiology - Fluid/Drainage RAD - CT Guidewires, Cath... Radiology Urinary Catheter Radiology - CT Other Items Radiology Contrast Contrast Used? Yes Dose 66 mL Medication OMNIPAQUE 350 [id number]/PK [id number] [facility] [id number] Radiology Procedure Site Last Modified By: Linette Segura RN 02/25/23 09:41:41 Transfer Post Procedure- CT Entry 1 RAD - Transport to Recovery Patient Transported IV Via Cart With Post-op Destination Receiving Transported By Linette Segura RN Post Procedure Time Out Double Verification Yes Date/Time Verified 02/25/23 10:01:00 of ID band on patient Completed Verfied ID Band on Linette Segura RN by Last Modified By: Linette Segura RN 02/25/23 10:03:36 Case Comments <None> Finalized By: Linette Segura RN Document Signatures Signed By: Linette Segura RN 02/25/23 10:04 [facility] 02-25-2023 Summary of episod e note Discharge Instructions Thank you for allowing [facility] to assist you with your healthcare needs. The following is important discharge information regarding your hospital visit. Your Care Team LUKE REEDER MD What to do next Follow Up Appointments Follow Up with ALICIA SAWYER MD When Why: Follow-up as scheduled Where: [address] [place] [address] [address] [facility] [place] [address]- [phone] Allergies Demerol (unspecified) Latex (unspecified) aspirin (unspecified) codeine (unspecified) metFORMIN (unspecified) metroNIDAZOLE (unspecified) Medications Please ask your primary doctor or pharmacist before taking any other medication not listed, including over the counter drugs, herbal medications, vitamins and or supplements as they may interact with your home medications. What How Much When Instructions Last Dose Unchanged amLODIPine (amLODIPine 5 mg oral tablet) 1 tab(s) by mouth Once a day Unchanged atenolol (atenolol 50 mg oral tablet) See instructions Take 1 tablet by mouth once daily Unchanged atorvastatin (atorvastatin 20 mg oral tablet) See instructions TAKE 1 TABLET BY MOUTH AT BEDTIME Unchanged glipiZIDE (glipiZIDE 5 mg oral tablet) 1 tab(s) by mouth Once a day Unchanged LORazepam (LORazepam 1 mg oral tablet) 1 tab(s) by mouth Two (2) times a day Unchanged losartan (losartan 100 mg oral tablet) 1 tab(s) by mouth Once a day Unchanged meclizine (meclizine 25 mg oral tablet) 1 tab(s) by mouth Three (3) times a day as needed for as needed for dizziness Unchanged multivitamin with minerals (ICaps AREDS 2 oral capsule) 1 cap by mouth Two (2) times a day Unchanged nutritional supplement Unchanged sertraline (Zoloft 100 mg oral tablet) 1 tab(s) by mouth Once a day Unchanged traMADol (traMADol 50 mg oral tablet) Please take this list to your next doctor s visit. Bring all medications you take, including over the counter medications, herbals and other supplements with you to your doctor s visit. Patients and families are reminded to discard old lists and to update any records with all medication providers or retail pharmacies. Education Materials [place] Coronary CT Angiogram (Coronary CTA or Cardiac CTA) Discharge Instructions [facility] [address] [place] [address] Today, you had a Coronary CT Angiogram. This procedure was done to look at the anatomy of your heart and the surrounding vessels. The images obtained are to help evaluate the presence of coronary heart disease. These instructions should be followed after your procedure to reduce the chance of experiencing complications. Please follow the instructions below to reduce the chance of experiencing complications. Activity: Rest for the remainder of the day. You may resume your normal activity tomorrow. Avoid alcoholic beverages for 24 hours after your procedure. Do not drive or operate heavy machinery for 24 hours after your procedure. Do not make any legal decisions for 24 hours after your procedure. Diet: Resume your normal diet as tolerated. Medication: Please resume home medications today as scheduled. When to seek medical help: Arm, neck or jaw pain Angina (chest pain) or chest discomfort Shortness of breath Dizziness or lightheaded Hives or itching If you experience any of these issues during the first 24 hours, please follow the instruction below or go to the Emergency Department: 8:00 am- 5:00 pm call [phone] After 5:00 pm call [phone] After 24 hours, contact the physician who ordered this procedure for you. Obtaining test results: Please make an appointment with your doctor to obtain your test results. They are usually available within 4 to 5 business days. Do not assume everything is normal if you have not heard from your doctor or medical facility. It is important for you to follow up on all of your test results. Special Instructions: Additional Information VACCINATE! IT SAVES LIVES! Members of the community who have not yet received the COVID-19 vaccine and would like to receive it can visit one of [facility] vaccine clinics. There are many vaccine clinic locations within the [facility]. For locations and available times, please visit [email or web address].coronavirus.o cao.gov/. It is important to note that some COVID mobile vaccine clinics are held outdoors and may be canceled in rainy or stormy conditions. To learn more about pediatric vaccinations (ages 5-11), we invite you to visit the [facility] webpage. [email or web address].[email or web address]/p [email or web address]-Lpnau-Hbflbvushln-Freq snqrvy-Sxufh-Gehcrcehv.html To learn more about the COVID-19 vaccine, we invite you to visit the CDC website for a list of frequently asked questions.https://www.cdc.gov/co ronavirus/2019-ncov/vaccines/faq .html [facility] Patient Portal Access Instructions: Stay connected with your healthcare team and access your personal medical information anytime with the [employer] Patient Portal. Please follow the directions below to create your [employer] account: 1.Access the email account you provided upon registration to the hospital/physician office.2.Look for an invitation email from [facility].3.Open the email and access the invitation link: Accept Invitation to [facility].4.Fill in the required sheehan to create your account. To access your account, visit [email or web address]. Click the blue button labeled Access Patient Portal and then log in with the username and password that you created in the steps above. You will be able to view your test results, lab results, a summary of your visits, upcoming appointments and more. There is also a convenient messaging option where you can send secure messages to your provider. In addition, you will have the ability to download any documents or summaries to your computer and/or send the information securely to a physician. Remember that your healthcare information is confidential, so carefully consider who you will allow to register on the [employer] Patient Portal for access to your information. You can also access the [employer] Patient Portal on the [employer] speedy. Simply click on Patient Portal and then log into your account. If you would like to receive a full copy of your medical records, please contact the [facility] Medical Records Department by calling [phone], Friday through Friday between 8 a.m. and 4:30 p.m. HOW TO SAFELY DISPOSE OF PRESCRIPTION MEDICATIONS Please use one of the following methods to safely dispose of your unused medications. 1.Use a drug disposal kit: the drug disposal pouch allows you to safely discard your old and unused drugs. Ask your nurse to give you one when you are discharged.2.Visit a local take-back location: Many local pharmacies and police departments have programs that collect old and unwanted prescription drugs. Call your local pharmacy or go to http://Stremor.BioMCN/4W1Yv5f to find one close to you.3.Make use of household items: Use cat litter or old coffee grounds to dispose medications if other options are not available. Mix your drugs with these household products, seal them in an airtight container and throw it into the garbage. Call [facility]: [phone] to be sure your drugs can be disposed of in this way. Some medicines may require a different approach.4.Never flush your medications down the toilet. IF YOU HAVE BEEN PRESCRIBED AN OPIOID FOR PAIN If you have been prescribed an opioid (such as hydrocodone, oxycodone or morphine), it is critical to understand the possible side effects and risks of opioid pain medications. Even when taken as directed, opioids can have several side effects including: Tolerance, meaning you might need to take more of a medication for the same pain relief. Nausea, vomiting and/or constipation. Sleepiness, dizziness, dry mouth, confusion, depression or itching. Physical dependence, meaning you have withdrawal symptoms when a medication is stopped, can develop within a few days. KNOW YOUR RESPONSIBILITIES It is important to know exactly how much and how often to take the opioid pain medications you are prescribed. Never take opioids in higher amounts or more often than prescribed. Do not combine opioids with alcohol or other drugs that cause drowsiness, such as benzodiazepines, also known as benzos, including diazepam and alprazolam, muscle relaxants or sleep aids. Never sell or share prescription opioids. This is illegal. Store opioids in a secure place and out of reach of others (including children, family, friends and visitors). The last page of this document has been signed and retained as a CHART COPY. Signatures Patient Education Materials Radiology- CT Coronary Angiogram (CUSTOM) Medication Leaflets My discharge plan and instructions have been reviewed and explained to me and ISALMA MARIANNE B understand my current condition and have read and understand these discharge instructions. I have received a written copy of the plan/instructions. If I have questions, I am aware that I should contact my doctor. Patient/Mines Inspector Signature: Date/Time: Relationship to Patient: Witness Name/Signature: Date/Time: [facility] 02-25-[address] Procedure Record Summary Primary Physician: SUMMER ANSARI MD Finalized Date/Time: 02/25/23 10:04:56 Pt. Name: JOHN MARSH /Sex: 1940 Female Med Rec #: [id number] Physician: Financial #: [id number] Pt. Type: O Room/Bed: / Admit/Disch: 02/25/23 07:16:07 - Institution: Allergies identified in patient's electronic medical record at time of printing on 02/25/23 Entry 1 Entry 2 Entry 3 Substance Demerol Latex aspirin Reaction Type Allergy Allergy Allergy Last Modified By: Lyn Silverman LPN, Sherry A LPN McCartney, Sherry A LPN 04/12/22 09:49:44 04/12/22 09:50:17 04/12/22 09:48:01 Entry 4 Entry 5 Entry 6 Substance codeine metFORMIN metroNIDAZOLE Reaction Type Allergy Allergy Allergy Last Modified By: Lyn Silverman LPN, Sherry A LPN McCartney, Sherry A LPN 04/12/22 09:48:37 04/12/22 09:49:12 04/12/22 09:50:56 Case Attendance- CT Entry 1 Entry 2 Entry 3 Case Attendee SUMMER ANSARI MD, Kaylee RN Smith, Practical Nursing FacultyMulu Reyes Role Performed Primary Surgeon Procedure Nurse Performing Arts Road Manager Details Time In 02/25/23 09:38:00 02/25/23 09:38:00 06/27/23 09:38:00 Time Out 02/25/23 09:39:00 02/25/23 10:04:00 02/25/23 10:04:00 Procedure/Preference CT Coronary Angiography CT Coronary Angiography CT Coronary Angiography Card W+W/O Contrast ( W+W/O Contrast ( W+W/O Contrast ( Last Modified By: Linette Segura RN, Kaylee RN Piacente, Kaylee RN 02/25/23 10:01:50 02/25/23 10:01:50 02/25/23 10:01:50 Radiology Procedures- CT Entry 1 Procedure/Preference CT Coronary Angiography Actual Procedure CT CORONARY ANGIOGRAPHY Card W+W/O Contrast (SN) W+W/O CONTRAST Primary Procedure Yes Primary Surgeon SUMMER ANSARI MD Anesthesia/Sedation None Type Additional Procedure Times Start 02/25/23 09:49:00 Stop 02/25/23 10:00:00 Specialty Service SN Radiology Procedure EBL 0 mL Last Modified By: Linette Segura RN 02/25/23 10:01:52 General Case Data- CT Entry [address] 1 Case Level None Wound Class None Specialty SN Radiology Procedure ASA Class None Diagnosis Preop Diagnosis abnormal stress test, Postop Same As Preop Yes coronary artery disease Postop Diagnosis abnormal stress test, coronary artery disease Last Modified By: Linette Segura RN 02/25/23 09:41:08 Medication Administration- CT Entry 1 Medication Sub Nitro Time Administered 02/25/23 09:56:00 Route of Admin Buccal Volume 0.4 mg VORB Administered by No Administered by: Linette Segura RN Physician? Last Modified By: Linette Segura RN 02/25/23 10:01:37 Procedure Case Times- CT Entry 1 Patient In Procedure Patient In OR 02/25/23 09:38:00 Patient Out of OR 02/25/23 10:04:00 Procedure Start/Stop Procedure Start Time 02/25/23 09:49:00 Procedure Stop Time 02/25/23 10:00:00 Last Modified By: Linette Segura RN 02/25/23 10:01:48 Allergy Information- CT Entry 1 Allergies Reviewed? Yes Allergies Reviewed Patient With Last Modified By: Linette Segura RN 02/25/23 09:38:21 Radiology Protocols/Time Out- CT Entry 1 Preprocedure Clinician Verifies Correct patient ID When Clinically Confirmation of correct using name & date Indicated side(s) and site(s), or MRN, Accurate Correct diagnostic and procedure, complete radiology tests Informed Consent available OR/Procedure Room/Bedside Time 02/25/23 09:39:00 Clinician Verifies Correct patient identity including EMR & records using name and date or medical record number, Accurate procedure consent form, Correct patient position, Necessary equipment is available When Applicable Confirmation correct side and site marked, Relevant images and results are properly labeled and appropriately displayed Instrument Sterility Procedure CT Coronary Angiography W+W/O Contrast ( Last Modified By: Linette Segura RN 02/25/23 09:40:02 Patient Positioning - CT Entry [address] Coronary Angiography Body Position OP Supine W+W/O Contrast ( Feet Uncrossed? Yes Pressure Points Yes Checked Last Modified By: Linette Segura RN 02/25/23 09:40:08 Radiology Procedure Plan - CT Entry 1 Radiology - Nursing Care Plan Outcome Statement The patient Outcome Statement The patient receives demonstrates knowledge Cont. appropriate of the expected medication(s), safely responses to the administered during the operative/invasive perioperative/invasive procedure., The period., The patient is patient's value system, free from signs and lifestyle, ethnicity, symptoms of injury and culture are caused by extraneous considered, respected, objects (equipment, and incorporated in the instrumentation, perioperative plan of sponges, or sharps)., care., The patient is The patient is free free from signs and from signs and symptoms symptoms of infection. of electrical injury. Radiology - Action Plan Action Plan - Patient's value system, Outcome Statement lifestyle, ethnicity, and culture are considered, respected, and incorporated in the perioperative plan of care., Patient is free from signs and symptoms of infection., Patient is free from signs and symptoms of injury related to positioning., Patient is free from signs and symptoms of chemical injury., Patient receives appropriate medication(s), safely administered during the perioperative period., Patient is free from signs and symptoms of injury caused by extraneous objects (equipment, instrumentation, sponges, or sharps). Seismograph Operator Helper Linette Segura RN Completing Procedure Plan Last Modified By: Linette Segura RN 02/25/23 09:40:41 Radiology Lines and Procedures- CT Entry 1 Radiology Sedation Case Times Sedation Total Time 0 Radiology - Fluid/Drainage RAD - CT Guidewires, Cath... Radiology Urinary Catheter Radiology - CT Other Items Radiology Contrast Contrast Used? Yes Dose 66 mL Medication OMNIPAQUE 350 [id number]/PK [id number] [facility] [id number] Radiology Procedure Site Last Modified By: Linette Segura RN 02/25/23 09:41:41 Transfer Post Procedure- CT Entry 1 RAD - Transport to Recovery Patient Transported IV Via Cart With Post-op Destination Receiving Transported By Linette Segura RN Post Procedure Time Out Double Verification Yes Date/Time Verified 02/25/23 10:01:00 of ID band on patient Completed Verfied ID Band on Linette Segura RN by Last Modified By: Linette Segura RN 02/25/23 10:03:36 Case Comments Finalized By: Linette Segura RN Document Signatures Signed By: Linette Segura RN 02/25/23 10:04 [facility] 09-17-2022 Evaluation + Plan note Future Scheduled TestsNM Myocardial Spect Rest/Stress 09/17/22 [facility] Diagnosis 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, without mention of having achieved remission documented in this encounter [facility] course Narrative No data available for this section [facility] Summary Purpose Family History No Family History Records FoundNo Family History Records FoundNo Family History Records FoundNo Family History Records FoundNo Family History Records FoundNo Family History Records Found Advance Directives No Advanced Directives Records FoundNo Advanced Directives Records FoundNo Advanced Directives Records FoundNo Advanced Directives Records FoundNo Advanced Directives Records FoundNo Advanced Directives Records Found Additional Source Comments INFORMATION SOURCE (unrecogn ized section and content) DATE CREATED AUTHOR AUTHOR'S ORGANIZ ATION 02/28/2018 [facility] DATE CREATED AUTHOR AUTHOR'S ORGANIZ ATION 09/05/2021 [facility] DATE CREATED AUTHOR AUTHOR'S ORGANIZ ATION 03/14/2023 [facility] ([place]) DATE CREATED AUTHOR AUTHOR'S ORGANIZ ATION 08/07/2023 [facility] DATE CREATED AUTHOR AUTHOR'S ORGANIZ ATION 09/07/2023 [facility] Patient Care team informatio n (unrecognized section and content) Seismograph Operator Helper Relationship Specialty Start Date End Date Luke Reeder MD [address] [place] [address] PCP - General Internal Medicine 06/03/23 Seismograph Operator Helper Relationship Specialty Start Date End Date Luke Reeder MD [address] [place], [place] [id number] PCP - General Internal Medicine 06/03/23 Larry Corrigan MD [address] [place] [address] Hematology/Oncology 07/03/23 Seismograph Operator Helper Relationship Specialty Start Date End Date Luke Reeder MD [address] [place] [address] PCP - General Internal Medicine 06/03/23 Larry Corrigan MD [address] [place] [address] Hematology/Oncology 07/03/23 Seismograph Operator Helper Relationship Specialty Start Date End Date Luke Reeder MD [address] [place], [place] [id number] PCP - General Internal Medicine 06/03/23 Larry Corrigan MD [address] [place] [address] Hematology/Oncology 07/03/23 Seismograph Operator Helper Relationship Specialty Start Date End Date Luke Reeder MD [address] [place], [place] [id number] PCP - General Internal Medicine 06/03/23 Larry Corrigan MD [address] [place], [place] [id number] Hematology/Oncology 07/03/23 Seismograph Operator Helper Relationship Specialty Start Date End Date Luke Reeder MD [address] [place] [address] PCP - General Internal Medicine 06/03/23 Larry Corrigan MD [address] [place] [address] Hematology/Oncology 07/03/23 Seismograph Operator Helper Relationship Specialty Start Date End Date Luke Reeder MD [address] [facility] [address] [place] [address] PCP - General Internal Medicine 06/03/23 Larry Corrigan MD [address] [place] [address] Hematology/Oncology 07/03/23 Source Comments (unrecognize d section and content) In the event this informatio n is protected by the Federal Confidentiality of Alcohol and Drug Abuse Patient Records regulations: The Federal rules restrict any use of the information to criminally investigate or prosecute any alcohol or drug abuse patient.[facility] the event this information is protected by the Federal Confidentiality of Alcohol and Drug Abuse Patient Records regulations: The Federal rules restrict any use of the information to criminally investigate or prosecute any alcohol or drug abuse patient.[facility] the event this information is protected by the Federal Confidentiality of Alcohol and Drug Abuse Patient Records regulations: The Federal rules restrict any use of the information to criminally investigate or prosecute any alcohol or drug abuse patient.[facility] the event this information is protected by the Federal Confidentiality of Alcohol and Drug Abuse Patient Records regulations: The Federal rules restrict any use of the information to criminally investigate or prosecute any alcohol or drug abuse patient.[facility] the event this information is protected by the Federal Confidentiality of Alcohol and Drug Abuse Patient Records regulations: The Federal rules restrict any use of the information to criminally investigate or prosecute any alcohol or drug abuse patient.[facility] the event this information is protected by the Federal Confidentiality of Alcohol and Drug Abuse Patient Records regulations: The Federal rules restrict any use of the information to criminally investigate or prosecute any alcohol or drug abuse patient.[facility]In the event this information is protected by the Federal Confidentiality of Alcohol and Drug Abuse Patient Records regulations: The Federal rules restrict any use of the information to criminally investigate or prosecute any alcohol or drug abuse patient.[facility]In the event this information is protected by the Federal Confidentiality of Alcohol and Drug Abuse Patient Records regulations: The Federal rules restrict any use of the information to criminally investigate or prosecute any alcohol or drug abuse patient.[facility]In the event this information is protected by the Federal Confidentiality of Alcohol and Drug Abuse Patient Records regulations: The Federal rules restrict any use of the information to criminally investigate or prosecute any alcohol or drug abuse patient.[facility]In the event this information is protected by the Federal Confidentiality of Alcohol and Drug Abuse Patient Records regulations: The Federal rules restrict any use of the information to criminally investigate or prosecute any alcohol or drug abuse patient.[facility]In the event this information is protected by the Federal Confidentiality of Alcohol and Drug Abuse Patient Records regulations: The Federal rules restrict any use of the information to criminally investigate or prosecute any alcohol or drug abuse patient.[facility]In the event this information is protected by the Federal Confidentiality of Alcohol and Drug Abuse Patient Records regulations: The Federal rules restrict any use of the information to criminally investigate or prosecute any alcohol or drug abuse patient.[facility] Reason for Visit (unrecogniz ed section and content) Reason Comments Reason Comments Procedure BMBX Reason Comments Appointment Reason Comments Care Coordination Gleevec Reason Onset Date Comments SPP Oral Oncology/hematology - Treatment Referra l 07/23/2023 Imatinib Insurance Authorization 07/23/2023 Pending PA Reason Comments Established Patient Reason Comments Patient Question Reason Onset Date Comments Refill Request 08/07/2023 Reason Comments Results Patient Question FOR RECORDS PERTAINING TO PATIENTS WHO ARE OR HAVE BEEN ENROLLED IN A CHEMICAL DEPENDENCY/SUBSTANCEABUSE PROGRAM, SOME INFORMATION MAY BE OMITTED. This clinical summary was aggregated from multiple sources. Caution should be exercised in using it in the provision of clinical care. This summary normalizes information from multiple sources, and as a consequence, information in this document may materially change the coding, format and clinical context of patient data. In addition, data may be omitted in some cases. CLINICAL DECISIONS SHOULD BE BASED ON THE PRIMARY CLINICAL RECORDS. [employer] provides no warranty or guarantee of the accuracy or completeness of information in this document.
== END | disposition home or self-care (01) ==
LOC: RAD 12:53
PROVIDERS: PCP Internal Medicine; Referring Provider Anesthesiology Pain Medicine; Visit Provider Anesthesiology Pain Medicine
DX: M51.36 Other intervertebral disc degeneration, lumbar region (principal)
CPT/HCPCS: 72050; 72110